=== PATIENT | female | born 1995 | race Caucasian/White ===

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

== ENCOUNTER 2017-02-11 19:28 | Emergency (ER) | payer SELFPAY ==
[~2017-02-11] VITALS: Ht 149.9 cm; Wt 52.2 kg
[2017-02-11 19:35] VITALS: BP_SYST 124
[2017-02-11] MEDS ORDERED: IBUP-1480 PO (20:10)
[2017-02-11] MEDS ORDERED: PENI500T PO (20:11)
[2017-02-11] MEDS: cefTRIAXone 1 GM in LIDOCAINE 1%, 20 ML MDV 2.1 ML IM ONE (20:44)
[2017-02-11] MEDS: KETOROLAC TROMETHAMINE 60 MG/2 ML VIAL IM ONE (20:45)
[2017-02-11] MEDS: ACETAMINOPHEN 500 MG TABLET PO ONE (20:46)
[2017-02-11] MEDS: ONDANSETRON 4 MG ODT TAB PO ONE (20:46)
[2017-02-11 21:42] VITALS: BP_SYST 121
== END 2017-02-11 21:42 | disposition home or self-care (01) ==
LOC: SED 19:28
DX: R11.2 Nausea with vomiting, unspecified (principal); R19.7 Diarrhea, unspecified; R10.13 Epigastric pain; T36.0X5A Adverse effect of penicillins, initial encounter; Z91.018 Allergy to other foods; J45.909 Unspecified asthma, uncomplicated; Z79.899 Other long term (current) drug therapy; Y92.89 Other specified places as the place of occurrence of the external cause
CPT/HCPCS: 81025; 96372; 99284; J0696; J1885; J2001; Q0162

== ENCOUNTER 2017-08-10 17:52 | Emergency (ER) | payer OTHER ==
[~2017-08-10] VITALS: Ht 157.5 cm; Wt 57.6 kg
[~2017-08-10 17:52] MED LIST: IBUP-1480 PO; PENI500T PO
[2017-08-10 17:55] VITALS: BP_SYST 126
[2017-08-10] MEDS ORDERED: KETOROLAC TROMETHAMINE 30 MG VIAL IVP ONE (18:30)
[2017-08-10] MEDS ORDERED: PROCHLORPERAZINE EDISYLATE 10 MG/2 ML VIAL IVP ONE (18:30)
[2017-08-10] MEDS ORDERED: LORazepam 2 MG/ML VIAL (FOR ER USE) IVP ONE (18:30)
[2017-08-10] MEDS ORDERED: NACL 0.9% 1,000 ML IV ONE (18:30)
[2017-08-10 18:46] LABS: EOSINOPHILS # (AUTO) 0.1 K/uL (0.0-0.4); EOSINOPHILS % (AUTO) 1.1 % (0.0-4.0); HEMATOCRIT 43.6 % (36-48); HEMOGLOBIN 14.4 g/dL (12.0-16.0); LYMPHOCYTES # (AUTO) 1.6 K/uL (1.0-5.5); MEAN CORPUSCULAR HEMOGLOBIN 29 pg (27-31); MEAN CORPUSCULAR HGB CONC 33 % (32-36); MEAN CORPUSCULAR VOLUME 87 fL (79.0-98.0); MONOCYTES # (AUTO) 0.5 K/uL (0.0-1.0); MONOCYTES % (AUTO) 5.8 % (1.7-9.3); PLATELET COUNT (AUTO) 212 K/uL (130-430); RED BLOOD CELL COUNT(AUTO) 5.02 MIL/uL (4.2-6.2); RED CELL DISTRIBUTION WIDTH 12.8 % (9.0-15.0); WHITE BLOOD COUNT (AUTO) 8.4 K/uL (4.5-11.0)
[2017-08-10 18:48] LABS: BASOPHILS % (AUTO) 0.6 % (0.0-2.0); NEUTROPHILS # (AUTO) 6.2 K/uL (1.8-7.7); NEUTROPHILS % (AUTO) 73.5 % (40.0-70.0)
[2017-08-10 18:52] LABS: BILIRUBIN,URINE NEGATIVE (NEGATIVE); BLOOD, URINE NEGATIVE (NEGATIVE); CLARITY/URINE SL HAZY (CLEAR); COLOR,URINE YELLOW (YELLOW); GLUCOSE,URINE NEGATIVE (NEGATIVE); KETONES,URINE NEGATIVE (NEGATIVE); LEUKOCYTE ESTERASE ,URINE NEGATIVE (NEGATIVE); NITRITE, URINE NEGATIVE (NEGATIVE); PROTEIN URINE NEGATIVE (NEGATIVE); UROBILINOGEN,URINE 0.2 (0.2-1.0)
[2017-08-10 18:59] LABS: CALCIUM 9.8 mg/dL (8.4-11.0); CREATININE 0.62 mg/dL (0.55-1.30)
[2017-08-10 19:02] LABS: BARBITURATE, URINE NEGATIVE (NEG <=200); BENZODIAZEPINE, URINE NEGATIVE (NEG <=150); CANNABINOID, URINE NEGATIVE (NEG <=50); COCAINE, URINE NEGATIVE (NEG <=150); METHAMPHETAMINES SCREEN,URINE NEGATIVE (NEG <=500); PHENCYCLIDINE SCREEN,URINE NEGATIVE (NEG <=25); URINE AMPHETAMINE NEGATIVE (NEG <=500); URINE METHADONE NEGATIVE (NEG <=200)
[2017-08-10 19:03] LABS: ALBUMIN 4.3 g/dL (3.4-4.8); TOTAL BILIRUBIN 0.7 mg/dL (0.0-1.0)
[2017-08-10 19:03] LABS: OPIATE, URINE NEGATIVE (NEG <=100); UR TRICYCLIC ANTIDEPRESSANTS NEGATIVE (NEG <=300); URINE OXYCODONE SCREEN NEGATIVE (NEG <=100); URINE PROPOXYPHENE SCREEN NEGATIVE (NEG <=300)
[2017-08-10 19:45] VITALS: BP_SYST 123
== END 2017-08-10 19:45 | disposition home or self-care (01) ==
LOC: SED 17:52
DX: R07.9 Chest pain, unspecified (principal); G43.909 Migraine, unspecified, not intractable, without status migrainosus; J45.909 Unspecified asthma, uncomplicated; R03.0 Elevated blood-pressure reading, without diagnosis of hypertension; Z88.0 Allergy status to penicillin; Z91.010 Allergy to peanuts; Z91.018 Allergy to other foods; Z79.899 Other long term (current) drug therapy
CPT/HCPCS: 36415; 80053; 80307; 81003; 81025; 84484; 85025; 93005; 96361; 96374; 96375; 99285; J0780; J1885; J2060; J7030

== ENCOUNTER 2018-11-21 21:23 | Emergency (ER) | payer OTHER ==
[~2018-11-21] VITALS: Ht 149.9 cm; Wt 61.2 kg
[~2018-11-21 21:23] MED LIST changes: -IBUP-1480 PO; +IBUP-1970 PO
[2018-11-21 21:35] VITALS: BP_SYST 119
[2018-11-21 22:52] LABS: BASOPHILS % (AUTO) 0.6 % (0.0-2.0); EOSINOPHILS # (AUTO) 0.2 K/uL (0.0-0.4); EOSINOPHILS % (AUTO) 2.6 % (0.0-4.0); HEMATOCRIT 40.5 % (36-48); HEMOGLOBIN 13.5 g/dL (12.0-16.0); LYMPHOCYTES # (AUTO) 1.4 K/uL (1.0-5.5); LYMPHOCYTES % (AUTO) 21.7 % (20.5-51.5); MEAN CORPUSCULAR HEMOGLOBIN 29 pg (27-31); MEAN CORPUSCULAR HGB CONC 33 % (32-36); MEAN CORPUSCULAR VOLUME 88 fL (79.0-98.0); MONOCYTES # (AUTO) 0.8 K/uL (0.0-1.0); MONOCYTES % (AUTO) 12.1 % (1.7-9.3); NEUTROPHILS # (AUTO) 4.1 K/uL (1.8-7.7); PLATELET COUNT (AUTO) 202 K/uL (130-430); RED BLOOD CELL COUNT(AUTO) 4.58 MIL/uL (4.2-6.2); RED CELL DISTRIBUTION WIDTH 13.5 % (9.0-15.0); WHITE BLOOD COUNT (AUTO) 6.5 K/uL (4.5-11.0)
[2018-11-21 23:15] LABS: CALCIUM 8.5 mg/dL (8.4-11.0); CREATININE 0.68 mg/dL (0.55-1.30); POTASSIUM 3.6 mmol/L (3.5-5.1)
[2018-11-21 23:20] LABS: ALBUMIN 3.7 g/dL (3.4-4.8); TOTAL BILIRUBIN 1.2 mg/dL (0.0-1.0)
[2018-11-21 23:53] LABS: BILIRUBIN,URINE NEGATIVE (NEGATIVE); BLOOD, URINE NEGATIVE (NEGATIVE); CLARITY/URINE CLEAR (CLEAR); COLOR,URINE YELLOW (YELLOW); GLUCOSE,URINE NEGATIVE (NEGATIVE); KETONES,URINE NEGATIVE (NEGATIVE); LEUKOCYTE ESTERASE ,URINE TRACE (NEGATIVE); NITRITE, URINE NEGATIVE (NEGATIVE); PH,URINE 6.5 (5.0-8.0); PROTEIN URINE NEGATIVE (NEGATIVE)
[2018-11-22 00:40] LABS: BACTERIA,URINE FEW /HPF (None Seen); RBC,URINE 0-3 /HPF (0-3)
[2018-11-22] MEDS ORDERED: ONDANSETRON HCL 4 MG/2 ML VIAL IVP ONE (00:45)
[2018-11-22] MEDS ORDERED: NACL 0.9% 1,000 ML IV ONE (00:45)
[2018-11-22] MEDS ORDERED: NITROFURANTOIN MONOHYD/M-CRYST 100 MG CAPSULE PO ONE (01:45)
[2018-11-22 02:25] VITALS: BP_SYST 126
== END 2018-11-22 02:25 | disposition home or self-care (01) ==
LOC: SED 21:23
DX: N39.0 Urinary tract infection, site not specified (principal); R11.2 Nausea with vomiting, unspecified; R53.1 Weakness; R19.7 Diarrhea, unspecified; R51 Headache; J45.909 Unspecified asthma, uncomplicated; Z88.0 Allergy status to penicillin; Z88.6 Allergy status to analgesic agent; Z91.010 Allergy to peanuts; Z91.018 Allergy to other foods
CPT/HCPCS: 36415; 80053; 81000; 83690; 85025; 87086; 96361; 96374; 99283; J2405; J7030

== ENCOUNTER 2020-01-29 04:20 | Emergency (ER) | payer OTHER, SELFPAY ==
[~2020-01-29] VITALS: Ht 152.4 cm; Wt 72.6 kg
[2020-01-29 04:20] VITALS: BP_SYST 135
--- NOTE | 2020-01-29 04:20 | NUR ---
Pt awake, alert, oriented x4. Pt states she woke up at approx 3am with R arm pain, mild SOB. Pt states that she has had negative covid test 2 days ago. Pt states that she currently has bronchitis/URI and has been prescribed decongestant and azithromycin for such. pt states that she has started antibiotics approx 3 days ago. pt presented to ed with redness to throat, clear lung sounds. pt states she feels like asthma has been exacerbated.
--- NOTE | 2020-01-29 04:20 | NUR ---
Patient to ER Triage Tent due to covid Suspicion for evaluation.
--- NOTE | 2020-01-29 04:39 | NUR ---
ER at Chairside bedside examining patient.
[2020-01-29] MEDS ORDERED: KETOROLAC TROMETHAMINE 30 MG VIAL IM ONE (05:00)
[2020-01-29] MEDS ORDERED: IPRATROPIUM/ALBUTEROL SULFATE 3 ML AMPUL.NEB (DUONEB) INH ONE (05:00)
[2020-01-29 06:58] LABS: BASOPHILS % (AUTO) 0.5 % (0.0-2.0); EOSINOPHILS # (AUTO) 0.1 K/uL (0.0-0.4); EOSINOPHILS % (AUTO) 0.7 % (0.0-4.0); HEMATOCRIT 42.1 % (36-48); HEMOGLOBIN 14.3 g/dL (12.0-16.0); LYMPHOCYTES # (AUTO) 1.9 K/uL (1.0-5.5); LYMPHOCYTES % (AUTO) 21.7 % (20.5-51.5); MEAN CORPUSCULAR HEMOGLOBIN 30 pg (27-31); MEAN CORPUSCULAR HGB CONC 34 % (32-36); MEAN CORPUSCULAR VOLUME 87 fL (79.0-98.0); MONOCYTES # (AUTO) 0.7 K/uL (0.0-1.0); MONOCYTES % (AUTO) 7.4 % (1.7-9.3); NEUTROPHILS # (AUTO) 6.1 K/uL (1.8-7.7); NEUTROPHILS % (AUTO) 69.7 % (40.0-70.0); PLATELET COUNT (AUTO) 191 K/uL (130-430); RED BLOOD CELL COUNT(AUTO) 4.82 MIL/uL (4.2-6.2); RED CELL DISTRIBUTION WIDTH 13.4 % (9.0-15.0); WHITE BLOOD COUNT (AUTO) 8.8 K/uL (4.8-10.8)
--- NOTE | 2020-01-29 06:59 | NUR ---
pt resting in triage tent chair. no distress.
--- NOTE | 2020-01-29 07:00 | NUR ---
Assumed care of patient, report received from Wayne THOMAS. Pt sitting in tent, no distress noted. Will continue to monitor.
[2020-01-29 07:09] LABS: CREATININE 0.82 mg/dL (0.55-1.30); POTASSIUM 3.5 mmol/L (3.5-5.1)
--- NOTE | 2020-01-29 07:10 | NUR ---
Urine dip for pregnacy test, negative result. MD amaro
--- NOTE | 2020-01-29 07:15 | NUR ---
Medicated with Toradol as ordered by , pt tolerated well.
[2020-01-29 07:20] LABS: ALBUMIN 3.7 g/dL (3.4-4.8); TOTAL BILIRUBIN 0.6 mg/dL (0.0-1.0)
[2020-01-29 07:25] LABS: STREPTOCOCCUS A SCREEN (RAPID) NEGATIVE (NEGATIVE)
[2020-01-29 07:47] LABS: INFLUENZA A&B ANTIGEN SCREEN NEGATIVE FOR A & B (NEGATIVE)
--- NOTE | 2020-01-29 07:50 | NUR ---
Patient given written and verbal discharge instructions and verbalizes understanding. ER MD discussed with patient the results and treatment provided. Patient in stable condition. ID arm band removed. Rx of Motrin given. Patient educated on pain management and to follow up with PMD. Pain Scale 2. Opportunity for questions provided and answered. Medication side effect fact sheet provided.
[2020-01-29 07:56] VITALS: BP_SYST 135
== END 2020-01-29 07:56 | disposition home or self-care (01) ==
LOC: SED 04:20
DX: S43.401A Unspecified sprain of right shoulder joint, initial encounter (principal); J02.9 Acute pharyngitis, unspecified; J45.909 Unspecified asthma, uncomplicated; Z20.828 Contact with and (suspected) exposure to other viral communicable diseases; Z88.0 Allergy status to penicillin; Z91.018 Allergy to other foods; Z91.010 Allergy to peanuts; Z79.899 Other long term (current) drug therapy; X50.9XXA Other and unspecified overexertion or strenuous movements or postures, initial encounter; Y93.89 Activity, other specified; Y92.89 Other specified places as the place of occurrence of the external cause; Y99.8 Other external cause status
CPT/HCPCS: 36415; 71045; 73020; 73060; 73070; 80053; 81025; 84703; 85025; 86403; 86710; 87081; 96372; 99284; C9803; J1885; U0003

== ENCOUNTER 2020-11-02 20:42 | Emergency (ER) | payer OTHER, SELFPAY ==
[~2020-11-02] VITALS: Ht 152.4 cm; Wt 74.8 kg
[2020-11-02 21:11] VITALS: BP_SYST 129
[2020-11-02] MEDS ORDERED: VIS25 PO (21:50)
[2020-11-02] MEDS ORDERED: PRED20TA PO (21:53)
[2020-11-02] MEDS ORDERED: SUMAtriptan SUCCINATE 6 MG/0.5 ML VIAL SUBCUT ONE (23:15)
[2020-11-02] MEDS ORDERED: MECLIZINE HCL 25 MG TABLET (ANITVERT) PO ONE (23:30)
[2020-11-03] MEDS ORDERED: IMI50 PO (00:29)
[2020-11-03 00:44] VITALS: BP_SYST 129
== END 2020-11-03 00:44 | disposition home or self-care (01) ==
LOC: SED 20:42
DX: G43.809 Other migraine, not intractable, without status migrainosus (principal); R42 Dizziness and giddiness; Z79.899 Other long term (current) drug therapy; Z88.0 Allergy status to penicillin; Z91.018 Allergy to other foods
CPT/HCPCS: 70450; 76376; 81025; 96372; 99284; J3030; J8597